=== PATIENT | female | born 1970 | race Caucasian/White ===

== ENCOUNTER 2019-06-10 19:37 | Emergency (ER) | payer MEDICAID ==
[~2019-06-10] VITALS: Ht 154.9 cm; Wt 118.8 kg
[2019-06-10 19:45] VITALS: BP 174/93
--- NOTE | 2019-06-10 19:55 | NUR ---
NEURO INTACT. PT TO LOBBY
--- NOTE | 2019-06-10 19:55 | NUR ---
TRIAGE COMPLETED BY BEAU HERNANDEZ
--- NOTE | 2019-06-10 21:24 | NUR ---
PT AMBULATED TO BED 03.
--- NOTE | 2019-06-10 21:51 | NUR ---
49 Y/O F PRESNTS TO ED WITH C/O L SIDE FACIAL AND NECK PAIN X1500 TODAY. AAOX4. SPEECH CLEAR AND COHERENT. BEHAVIOR CALM AND APPROPIATE. -FACIAL DROP. C/O BOWMAN, LOCATED AT BILATERAL TEMPLES. PT HAS PAIN WHEN TURNING HEAD. VSS. WILL CONTINUE TO MONITOR.
[2019-06-10] MEDS ORDERED: DIAZEPAM 5 MG TAB PO ONE (22:20)
[2019-06-10 23:00] LABS: BASOPHILS % (AUTO) 0.4 % (0.0-2.0); EOSINOPHILS # (AUTO) 0.2 K/uL (0-0.4); EOSINOPHILS % (AUTO) 3.1 % (0.0-4.0); HEMATOCRIT 37.5 % (36-48); HEMOGLOBIN 12.4 g/dL (12.0-16.0); LYMPHOCYTES # (AUTO) 2.4 K/uL (2.5-16.5); LYMPHOCYTES % (AUTO) 33.7 % (20.5-51.1); MEAN CORPUSCULAR HEMOGLOBIN 28 pg (27-31); MEAN CORPUSCULAR HGB CONC 33 g/dL (33-37); MEAN CORPUSCULAR VOLUME 85.7 fL (80-94); MONOCYTES # (AUTO) 0.7 K/uL (0.8-1.0); MONOCYTES % (AUTO) 9.7 % (1.7-9.3); NEUTROPHILS # (AUTO) 3.7 K/uL (1.8-7.7); NEUTROPHILS % (AUTO) 53.1 % (42.2-75.2); PLATELET COUNT (AUTO) 173 K/uL (140-450); RED BLOOD CELL COUNT(AUTO) 4.37 MIL/uL (4.20-5.40)
[2019-06-10 23:13] LABS: CARBON DIOXIDE 25.7 mmol/L (21-32); POTASSIUM 3.7 mmol/L (3.5-5.1)
[2019-06-10 23:17] LABS: ALBUMIN 3.5 g/dL (3.4-5.0)
--- NOTE | 2019-06-10 23:23 | NUR ---
PT STILL C/O 05/01 BOWMAN. AGNES MADE AWARE.
[2019-06-10 23:34] LABS: TOTAL BILIRUBIN 0.3 mg/dL (0.0-1.0)
[2019-06-10 23:43] LABS: CREATINE KINASE MB 1.3 ng/mL (0-3.6)
[2019-06-10] MEDS ORDERED: KETOROLAC 30 MG/ML VIAL IM ONE ×2 (23:55)
[2019-06-11 00:46] VITALS: BP 145/66
--- NOTE | 2019-06-11 00:46 | NUR ---
PT DISCHARGED WITH PAPERWORK. RX NAPROSYN AND VALIUM. EDUCATED PT REGARDING MEDICATIONS AND S/E. EDUCATED PT REGARDING D/C DIAGNOSIS AND INSTRUCTIONS. PT VERBALIZED UNDERSTANDING OF TEACHING. TOLD PT TO FOLLOW UP WITH PCP AND WHEN TO RETURN TO ED. PT VSS. ALL QUESTIONS ANSWERED.
== END 2019-06-11 00:46 | disposition home or self-care (01) ==
LOC: MED 19:37
DX: M62.838 Other muscle spasm (principal); R07.89 Other chest pain; R51 Headache; E11.9 Type 2 diabetes mellitus without complications; I10 Essential (primary) hypertension
CPT/HCPCS: 36415; 71045; 80053; 82550; 82553; 83690; 84484; 85025; 96372; 99284; J1885; 93005

== ENCOUNTER 2023-06-22 16:00 | Emergency (ER) | payer MEDICAID ==
[~2023-06-22] VITALS: Ht 157.5 cm; Wt 108.9 kg
[2023-06-22 16:05] VITALS: BP 143/93; PULSE 91; RESP 15; TEMP 97.9; O2SAT 95
[2023-06-22] MEDS ORDERED: KETOROLAC 30 MG/ML VIAL IM ONE (16:35)
[2023-06-22] MEDS ORDERED: ACETAMINOPHEN 325 MG TAB PO ONE (16:35)
[2023-06-22 16:37] LABS: FLU A ANTIGEN negative (NEGATIVE); FLU B ANTIGEN NEGATIVE (NEGATIVE)
[2023-06-22 16:38] LABS: APPEARANCE,URINE CLEAR (CLEAR); BILIRUBIN,URINE NEGATIVE (NEGATIVE); BLOOD, URINE NEGATIVE (NEGATIVE); COLOR,URINE YELLOW (YELLOW); LEUKOCYTE ESTERASE ,URINE NEGATIVE (NEGATIVE); NITRITE, URINE NEGATIVE (NEGATIVE); PH,URINE 6.5 (5.0-9.0); PROTEIN,URINE NEGATIVE (NEGATIVE); UGLUCOSE 3+ (NEGATIVE); UROBILINOGEN,URINE 0.2 EU/dL (0.2 - 1)
[2023-06-22] MEDS ORDERED: MICO2CRE70 VG (18:24)
[2023-06-22] MEDS ORDERED: BENZ200C4 PO (18:24)
[2023-06-22] MEDS ORDERED: FLONAS NS (18:24)
[2023-06-22 18:30] VITALS: BP 143/93; PULSE 91; RESP 15; TEMP 97.9; O2SAT 95
== END 2023-06-22 18:30 | disposition home or self-care (01) ==
LOC: MED 16:00
DX: J06.9 Acute upper respiratory infection, unspecified (principal); R51.9 Headache, unspecified; R30.0 Dysuria; Z20.822 Contact with and (suspected) exposure to COVID-19; E11.9 Type 2 diabetes mellitus without complications; I10 Essential (primary) hypertension; Z79.899 Other long term (current) drug therapy
CPT/HCPCS: 81003; 87426; 87804; 96372; 99283; J1885